=== PATIENT | male | born 1975 | race Caucasian/White ===

== ENCOUNTER 2019-10-27 23:22 | Emergency (ER) | payer OTHER ==
[~2019-10-27] VITALS: Ht 182.9 cm; Wt 90.7 kg
[2019-10-28] LABS: ABSOLUTE BASOPHILS 0.1 thou/uL (0.0-0.2); ABSOLUTE EOSINOPHILS 0.4 thou/uL (0.0-0.7); ABSOLUTE MONOCYTES 1.3 thou/uL (0.0-1.2); ABSOLUTE NEUTROPHILS 5.5 thou/uL (1.6-8.1); BASOPHILS 0.9 %; EOSINOPHILS 3.7 %; HEMATOCRIT 45.5 % (42.0-52.0); HEMOGLOBIN 15.7 gm/dL (14.0-18.0); LYMPHOCYTES 35.4 %; MCH 30.4 pg (26.0-34.0); MCHC 34.6 g/dL (28.0-37.0); MCV 87.8 fL (80.0-100.0); MONOCYTES 11.4 %; MPV 8.3 fl. (7.2-11.1); NUCLEATED RBCS 0 /100WBC; PLATELET COUNT* 297 thou/uL (150-400); POLYS 48.6 %; RBC 5.18 mil/uL (4.50-6.00); RDW-CV 13.5 % (10.5-14.5); WBC 11.3 thou/uL (4.0-11.0)
[2019-10-28 00:05] LABS: URINE BILIRUBIN NEGATIVE (Negative); URINE BLOOD NEGATIVE (Negative); URINE CLARITY CLEAR; URINE COLOR STRAW; URINE GLUCOSE-RANDOM NEGATIVE (Negative); URINE KETONES NEGATIVE (Negative); URINE LEUKOCYTES-REFLEX NEGATIVE (Negative); URINE NITRITE-REFLEX NEGATIVE (Negative); URINE PROTEIN NEGATIVE (Negative); URINE SPECIFIC GRAVITY <= 1.005 (1.005-1.030); URINE UROBILINOGEN 0.2 E.U./dl (0.2-1.0)
[2019-10-28 00:09] LABS: CALCIUM 8.7 mg/dL (8.5-10.1); POTASSIUM 3.2 mmol/L (3.5-5.1)
[2019-10-28 00:13] LABS: AMP/METHAMP Negative (Negative); BARBITURATES Negative (Negative); BENZODIAZEPINES Negative (Negative); COCAINE Negative (Negative); METHADONE Negative (Negative); OPIATES Negative (Negative); PCP Negative (Negative); THC Negative (Negative)
[2019-10-28 00:13] LABS: ALBUMIN 4.1 g/dL (3.4-5.0); TOTAL BILIRUBIN 0.3 mg/dL (<0.1-1.0); TOTAL PROTEIN 8.2 g/dL (6.4-8.2)
[2019-10-28 00:15] LABS: ALCOHOL 195 mg/dL (<10); SALICYLATE 4.4 mg/dL (2.8-20.0)
[2019-10-28 00:17] LABS: ACETAMINOPHEN < 2 ug/mL (10-30)
[2019-10-29 04:20] VITALS: BP 139/84
== END 2019-10-29 04:20 | disposition still patient (30) ==
LOC: M.ERS 23:22
PROVIDERS: Emergency Medicine
DX: F32.9 Major depressive disorder, single episode, unspecified (principal); Z20.828 Contact with and (suspected) exposure to other viral communicable diseases; R45.851 Suicidal ideations; F10.920 Alcohol use, unspecified with intoxication, uncomplicated; Y90.9 Presence of alcohol in blood, level not specified